=== PATIENT | male | born 1950 | race Caucasian/White ===

== ENCOUNTER → 2016-06-28 | Outpatient (CLI) | payer BC ==
[~2016-06-28] MED LIST: CARDIZEM30 MG PO; CLEOCIN HCL300 MG PO; DELTASONE DPS10 MG PO; DUONEB DPS3 ML IH; GUAIFEN-CODEIN473 ML PO; PROVENTIL HFA6.7 GM IH; SYMBICORT160 MCG/6 IH; SYNTHROID DP0.125 MG PO; ZOCOR DPS40 MG PO
== END | disposition home or self-care (01) ==
LOC: RAD.S 07:05
DX: R13.10 Dysphagia, unspecified (principal); K22.2 Esophageal obstruction

== ENCOUNTER 2016-07-17 06:30 | Day surgery (SDC) | payer BC ==
[~2016-07-17] VITALS: Ht 177.8 cm; Wt 94.8 kg
--- NOTE | 2016-07-22 08:36 | OR ---
ADMIT: 07/17/2016 RM/LOC: [facility] MR#: [id number] ACC#: [id number] [id number] [facility] [address] [place], [place] [address] EVELYNE FOX [address] [place] [address] Operative/Delivery Room Report SEX: M AGE: 66 : 1950 SURGERY DATE: 07/17/2016 SURGEON: Nito Salas MD PREOPERATIVE DIAGNOSIS: Dysphagia. POSTOPERATIVE DIAGNOSIS: Distal esophageal mass, worrisome for malignancy. PROCEDURE: Esophagogastroduodenoscopy with biopsy. ANESTHESIA: IV general. DESCRIPTION OF PROCEDURE: The patient was taken to the endoscopy suite and placed left side down on his hospital cart. A bite-block was placed and IV sedation was established. The upper endoscope was advanced through the oropharynx into the esophagus without difficulty. The scope was pushed under visualization to the distal esophagus. At about 38 cm from the incisors, was the mass. This was circumferential in the distal portion and only partially circling the circumference proximally. I was able to advance beyond the mass into the stomach. The mass did extend right to the gastroesophageal junction. Air was used to insufflate the stomach. The pylorus was intubated. The first and second portions of the duodenum were examined and appeared normal. The scope was withdrawn to the stomach. The gastric antrum, body, and fundus appeared normal. On retroflexion of the scope, it did not appear that the mass extended into the gastric cardia. The scope was withdrawn to the gastroesophageal junction where the mass was. Multiple biopsies were obtained for pathologic confirmation. There was a pill sitting above the level of the mass from his ingestion of that earlier. I was able to advance this into the stomach. The scope was withdrawn and air was suctioned. The patient tolerated the procedure well and transferred to the recovery area in stable condition. Nito Salas MD/ pinky JOB #: [id number] CC: Nito Salas, Attending Physician Uche Olson, Family Physician
== END 2016-07-17 11:07 | disposition home or self-care (01) ==
LOC: SSS 06:30
PROC: 0DB38ZX Excision of Lower Esophagus, Via Natural or Artificial Opening Endoscopic, Diagnostic (ICD-10-PCS; principal; 2016-07-17)
DX: C15.5 Malignant neoplasm of lower third of esophagus (principal); K22.70 Barrett's esophagus without dysplasia; I25.2 Old myocardial infarction; I10 Essential (primary) hypertension; I48.91 Unspecified atrial fibrillation; E78.5 Hyperlipidemia, unspecified; I25.10 Atherosclerotic heart disease of native coronary artery without angina pectoris; J44.9 Chronic obstructive pulmonary disease, unspecified; Z79.899 Other long term (current) drug therapy; E07.9 Disorder of thyroid, unspecified; Z90.49 Acquired absence of other specified parts of digestive tract; Z87.891 Personal history of nicotine dependence

== ENCOUNTER → 2016-07-18 | Outpatient (CLI) | payer BC | END | disposition home or self-care (01) | LOC: RAD.S 07-11 12:03 → RESC 07:48 → RAD.S 08:30 | DX: J18.9 Pneumonia, unspecified organism (principal); J90 Pleural effusion, not elsewhere classified; R06.00 Dyspnea, unspecified; J43.9 Emphysema, unspecified; R91.8 Other nonspecific abnormal finding of lung field ==

== ENCOUNTER → 2016-08-08 | Outpatient (CLI) | payer BC ==
--- NOTE | 2016-08-19 11:02 | SS ---
ADMIT: 08/08/2016 RM/LOC: [facility] MR#: [id number] [address] [facility] [address] [place], [place] [address] EVELYNE FOX [address] [place] [address] Sleep Study SEX: M AGE: 66 : 1950 STUDY DATE: 08/08/2016 CLINICAL HISTORY: A 66-year-old male, body mass index of 30, 70 inches tall, 209 pounds, who has symptoms of daytime fatigue, occasional snoring. [place] Sleepiness Scale of 14, undergoing evaluation for obstructive sleep apnea. TECHNICAL DESCRIPTION: Diagnostic polysomnogram performed on night of 08/08/2016, attended by a trained electrical design technologist. DIAGNOSTIC POLYSOMNOGRAM FINDINGS: SLEEP: Total time in bed is 473 minutes, total sleep time 307 minutes, sleep efficiency 64.9%. 57.6% hours spent in stage II sleep, 7.7% hours time was spent in stage REM. BREATHING: Mild obstructive sleep apnea based on respiratory disturbance index of 12.3. Apnea-hypopnea index is 4.9. OXYGEN SATURATION: Mean sleeping on 90%, lowest oxygen 84%. 26.7% hours time was spent saturating 80% to 89%. CARDIAC: Average heart rate 77 beats per minute. MOVEMENTS/POSITION: During the study, the patient slept in supine lateral position with no significant leg movements. IMPRESSION/PLAN: Mild obstructive sleep apnea with a respiratory disturbance index of 12.3. Given excessive daytime sleepiness with [place] Sleepiness Scale of 14, and other comorbidities, I am recommending CPAP titration and CPAP therapy as optimal treatment. Recommend losing weight, avoiding sedatives or alcohol. Refrain from driving if excessively sleepy. Clinical correlation needed. CPAP titration is recommended. Elio Christensen MD/ pinky JOB #: [id number] CC: Heath Hardy MD, Attending Physician Uche Olson MD, Family Physician
== END | disposition home or self-care (01) ==
LOC: RESC 07-22 21:00
DX: J18.9 Pneumonia, unspecified organism (principal); R06.00 Dyspnea, unspecified; J90 Pleural effusion, not elsewhere classified

== ENCOUNTER 2016-08-21 07:48 | Day surgery (SDC) | payer BC ==
[~2016-08-21] VITALS: Ht 177.8 cm; Wt 91.5 kg
--- NOTE | 2016-08-24 15:28 | OR ---
ADMIT: 08/21/2016 RM/LOC: [facility] MR#: [id number] [address] [facility] [address] [place], [place] [address] EVELYNE FOX [address] [place] [address] Operative/Delivery Room Report SEX: M AGE: 66 : 1950 SURGERY DATE: 08/21/2016 SURGEON: Nito Salas MD PREOPERATIVE DIAGNOSIS: Esophageal cancer. POSTOPERATIVE DIAGNOSIS: Esophageal cancer. PROCEDURE: 1. Right internal jugular vein PowerPort insertion under ultrasound and fluoroscopic guidance. 2. Esophagogastroduodenoscopy with percutaneous endoscopic gastrostomy tube insertion. ANESTHESIA: IV general. DESCRIPTION OF PROCEDURE: The patient was taken to the operating room and placed supine on the operating room table. IV sedation was established. The neck and chest were prepped and draped in the standard surgical fashion. Local anesthetic was used to anesthetize the skin and subcutaneous tissue over the right neck and chest wall. The right internal jugular vein was identified with ultrasound and cannulated under ultrasound guidance with a large gauge needle. A guidewire was advanced via the needle to the superior vena cava under fluoroscopy. Next, a port pocket was created inferior to the right clavicle to allow snug positioning of the PowerPort. The catheter was tunneled from the port pocket to the needle insertion site and cut the appropriate length. The catheter was secured to the port with a cuff. The port was sutured on both sides to the pectoralis fascia with 3-0 Prolene suture. The dilator and sheath were advanced over the guidewire under fluoroscopy. The guidewire and dilator were withdrawn. The catheter was deployed via the sheath, and the sheath was removed. Fluoroscopy showed appropriate position of the catheter with the tip at the atriocaval junction and no evidence of kink. The port was accessed with the Stiles needle, aspirated easily, and flushed with heparinized saline. The deep tissue of the port pocket was approximated with 3-0 Vicryl suture. Skin edges were approximated with 4-0 Monocryl in a subcuticular fashion and Dermabond. Sponge, needle, and instrument counts were correct at the end of the case. Next, a flexible endoscope was advanced through the oropharynx into the esophagus without difficulty. This was advanced to the esophageal cancer and I was able to traverse this area into the stomach. Air was used to insufflate the stomach. Transillumination in the mid body of the stomach was performed in the left upper quadrant of the abdomen. One-to-one finger indentation was demonstrated. This area was prepped and draped in the standard surgical ADMIT: 08/21/2016 RM/LOC: [facility] MR#: [id number] [address] [id number] FOXEVELYNE [address] [place] [address] Operative/Delivery Room Report SEX: M AGE: 66 : 1950 fashion. Local anesthetic was used to anesthetize the skin at the site. A 7 mm incision was made at the site. The stomach was then accessed under endoscopic visualization with a large gauge Angiocath. A guidewire was advanced via the Angiocath and grasped with the endoscopic snare. The wire was then withdrawn through the oropharynx. The 20-British gastrostomy tube was advanced over the guidewire and pulled to the abdominal wall at 5.5 cm at skin level. The plastic buttress clamp and cap were placed on the tube. The endoscope was again advanced through the oropharynx, passed the esophageal mass and into the stomach demonstrating the mushroom of the catheter in appropriate position in the body of the stomach with no signs of bleeding. The scope was withdrawn. The patient tolerated the procedure well and transferred to the recovery area in stable condition. Nito Salas MD/ pinky JOB #: [id number] CC: Nito Salas, Attending Physician Uche Olson, Family Physician
== END 2016-08-21 14:00 | disposition home or self-care (01) ==
LOC: SSS 07:48
DX: C15.5 Malignant neoplasm of lower third of esophagus (principal); I25.10 Atherosclerotic heart disease of native coronary artery without angina pectoris; J44.9 Chronic obstructive pulmonary disease, unspecified; I10 Essential (primary) hypertension; E03.9 Hypothyroidism, unspecified; E78.5 Hyperlipidemia, unspecified; Z87.891 Personal history of nicotine dependence; Z90.49 Acquired absence of other specified parts of digestive tract; Z79.899 Other long term (current) drug therapy

== ENCOUNTER 2016-08-23 07:15 | Day surgery (SDC) | payer BC ==
[~2016-08-23] VITALS: Ht 174 cm; Wt 93.6 kg
== END 2016-08-23 10:26 | disposition home or self-care (01) ==
LOC: RAD.S 07:15
PROC: 0QB03ZX Excision of Lumbar Vertebra, Percutaneous Approach, Diagnostic (ICD-10-PCS; principal; 2016-08-23)
DX: C79.51 Secondary malignant neoplasm of bone (principal); Z85.01 Personal history of malignant neoplasm of esophagus; Z79.899 Other long term (current) drug therapy